=== PATIENT | female | born 1940 | race Caucasian/White ===

== ENCOUNTER 2017-07-31 08:14 | Day surgery (SDC) | payer MEDICARE ==
[~2017-07-31] VITALS: Ht 170.2 cm; Wt 54.4 kg
[2017-07-31] MEDS ORDERED: LIDOcaine 1% 30ml vial SQ STA (08:27)
[2017-07-31 08:54] VITALS: BP 165/61
[2017-07-31 09:00] VITALS: BP 175/54
[2017-07-31 09:15] VITALS: BP 171/56
[2017-07-31] MEDS ORDERED: PROG200C7 PO (09:27)
[2017-07-31] MEDS ORDERED: ROPI1TAB2 PO (09:27)
[2017-07-31] MEDS ORDERED: ASPI81TA52 PO (09:27)
[2017-07-31] MEDS ORDERED: ATOR20TA66 PO (09:27)
[2017-07-31] MEDS ORDERED: CYCL-1 PO (09:27)
[2017-07-31] MEDS ORDERED: MELO-102 PO (09:27)
[2017-07-31] MEDS ORDERED: ESTR1TAB19 PO (09:27)
[2017-07-31] MEDS ORDERED: RANI-553 PO (09:27)
[2017-07-31] MEDS ORDERED: THYR32.510 PO (09:27)
[2017-07-31] MEDS ORDERED: MULT-1085 PO (09:27)
[2017-07-31] MEDS ORDERED: ALPR-623 PO (09:27)
[2017-07-31] MEDS ORDERED: LISI-644 PO (09:27)
[2017-07-31 09:30] VITALS: BP 112/72
== END 2017-07-31 09:45 | disposition home or self-care (01) ==
LOC: SSTAY O 08:14
PROVIDERS: ATTEND Radiology Diagnostic Radiology
DX: J90 Pleural effusion, not elsewhere classified (principal); K21.9 Gastro-esophageal reflux disease without esophagitis; E78.5 Hyperlipidemia, unspecified; I10 Essential (primary) hypertension; Z90.710 Acquired absence of both cervix and uterus; Z98.890 Other specified postprocedural states; Z87.891 Personal history of nicotine dependence
CPT/HCPCS: 32555; 71045; J3490; 88108

== ENCOUNTER 2021-05-26 00:19 | Inpatient (IN) | payer BC, MEDICARE ==
[~2021-05-26] VITALS: Ht 172.7 cm; Wt 44.5 kg
[~2021-05-26 00:19] MED LIST: ALPR-623 PO; ASPI81TA52 PO; ATOR20TA66 PO; CYCL-1 PO; ESTR1TAB19 PO; LISI-644 PO; MELO-102 PO; MULT-1085 PO; PROG200C11 PO; RANI-647 PO; ROPI1TAB2 PO; THYR32.510 PO
[2021-05-26] MEDS ORDERED: normal saline 1000ml 1,000 ML IV ONE (00:45)
[2021-05-26 01:56] LABS: BASOPHILS % (AUTO) 0.5 % (0-1); EOSINOPHILS # (AUTO) 0.1 X10'3 (0-0.9); EOSINOPHILS % (AUTO) 1.6 % (0-6); HEMATOCRIT 26.9 % (35.0-45.0); HEMOGLOBIN 9.2 g/dl (12.0-16.0); LYMPHOCYTES # (AUTO) 1.2 X10'3 (1.1-4.8); LYMPHOCYTES % (AUTO) 18.4 % (21-51); MEAN CORPUSCULAR HEMOGLOBIN 33.4 PG (27.0-31.0); MEAN CORPUSCULAR HGB CONC 34.1 g/dL (33.0-36.5); MEAN CORPUSCULAR VOLUME 98.1 FL (78-98); MEAN PLATELET VOLUME 8.6 FL (7.4-10.4); MONOCYTES # (AUTO) 0.8 X10'3 (0-0.9); MONOCYTES % (AUTO) 12.7 % (2-12); NEUTROPHILS # (AUTO) 4.4 X10'3 (1.8-7.7); NEUTROPHILS % (AUTO) 66.8 % (42-75); PLATELET COUNT 221 X10'3 (140-440); RED BLOOD COUNT 2.74 X10'6 (4.20-5.60); RED CELL DISTRIBUTION WIDTH 12.4 % (11.5-14.5); WHITE BLOOD COUNT 6.6 X10'3 (4.5-11.0)
[2021-05-26 02:13] LABS: ALANINE AMINOTRANSFERASE 22 U/L (12-78); ALBUMIN 2.7 G/DL (3.4-5.0); ALBUMIN/GLOBULIN RATIO 0.9 (1.1-1.5); ALKALINE PHOSPHATASE 53 IU/L (46-116); ANION GAP 11 (8-16); ASPARTATE AMINO TRANSFERASE 16 U/L (10-37); BILIRUBIN,TOTAL 0.2 MG/DL (0.1-1.0); BLOOD UREA NITROGEN 13 MG/DL (7-18); CALCIUM 8.5 MG/DL (8.5-10.1); CHLORIDE 105 MMOL/L (99-107); CREATININE 1.45 MG/DL (0.40-0.90); GLUCOSE 141 MG/DL (70-104); SODIUM 137 MMOL/L (135-145); TOTAL CARBON DIOXIDE 20.6 MMOL/L (24-32); TOTAL PROTEIN 5.6 G/DL (6.4-8.2); eGFR 35 ML/MIN
[2021-05-26 02:16] LABS: POTASSIUM 2.9 MMOL/L (3.5-5.1)
[2021-05-26] MEDS ORDERED: potassium Cl 20 mEq SR tablet PO STA (02:35)
[2021-05-26] MEDS ORDERED: GABA-530 PO (02:56)
[2021-05-26] MEDS ORDERED: SYN0.088T PO (02:57)
[2021-05-26] MEDS ORDERED: LISI20TA28 PO (02:57)
[2021-05-26] MEDS ORDERED: MONT-40 PO (02:57)
[2021-05-26] MEDS ORDERED: ACET-1025 PO (03:00)
[2021-05-26] MEDS ORDERED: OMEP20CA15 PO (03:01)
[2021-05-26] MEDS ORDERED: [UNRECOGNIZED DRUG - CODE] (03:03)
[2021-05-26] MEDS ORDERED: benzocaine/menthol oral lozeng 1 EACH BOX MM PRN ×2 (03:45→03:50)
[2021-05-26] MEDS ORDERED: mag hydrox/Alum hydrox/simeth 30ml oral suspension PO PRN (04:40)
[2021-05-26] MEDS ORDERED: potassium Cl 20 mEq SR tablet PO PRN ×2 (04:40)
[2021-05-26] MEDS ORDERED: magnesium hydroxide 30ml (MOM) UD suspension PO PRN (04:40)
[2021-05-26] MEDS ORDERED: acetaminophen 325mg tablet PO PRN (04:40)
[2021-05-26] MEDS ORDERED: ondansetron/PF 4mg/2ml inj IV PRN (04:40)
[2021-05-26] MEDS ORDERED: potassium Cl 40MEQ/1/2NS 520ml 520 ML IV PRN ×2 (04:40)
[2021-05-26] MEDS ORDERED: CHOL500044 PO (05:38)
[2021-05-26] MEDS ORDERED: ASCO-10 PO (05:39)
[2021-05-26] MEDS: potassium Cl 20mEq in NS 1,000 ML IV SCH ×2 (05:51→22:47)
[2021-05-26] MEDS ORDERED: PERFLUTREN PROTEIN-A MICROSPHR (Optison) 0.22 MG/ML 3ML VIAL IV ONE (08:00)
[2021-05-26] MEDS: K and/or MAG REPLACEMENT MC SCH ×2 (09:07→20:00)
[2021-05-26] MEDS: aspirin 81mg, enteric-coated 1 TAB TABLET.DR PO SCH (09:11)
[2021-05-26] MEDS: pantoprazole 40mg Tablet.DR PO SCH (09:11)
[2021-05-26] MEDS: levoTHYROXINE 88mcg tablet PO SCH (09:12)
[2021-05-26] MEDS: docusate sod 100mg capsule PO SCH ×2 (09:12→22:03)
[2021-05-26] MEDS: heparin, porcine 5000 units/ml vial SQ SCH ×2 (09:12→22:04)
[2021-05-26 20:00] VITALS: BP 155/65
[2021-05-26 20:15] VITALS: BP 155/55
[2021-05-26] MEDS ORDERED: ROPINIRole 1mg tablet PO SCH (21:00)
[2021-05-26 22:00] VITALS: BP 142/61
[2021-05-26] MEDS ORDERED: Melatonin 3mg tablet PO PRN (22:25)
[2021-05-27 02:00] VITALS: BP 138/50
[2021-05-27 06:00] VITALS: BP 142/79
--- NOTE | 2021-05-27 06:00 | NUR ---
Patient in room PCU 3012. I have received report from LEDY RN and had the opportunity to ask questions and assume patient care.
[2021-05-27 08:00] VITALS: BP_SYST 141; BP_SYST 145; BP_SYST 158; BP_DIAS 49; BP_DIAS 58; BP_DIAS 67
[2021-05-27] MEDS: K and/or MAG REPLACEMENT MC SCH (08:00)
[2021-05-27] MEDS: pantoprazole 40mg Tablet.DR PO SCH (08:27)
[2021-05-27] MEDS: levoTHYROXINE 88mcg tablet PO SCH (08:28)
[2021-05-27] MEDS: aspirin 81mg, enteric-coated 1 TAB TABLET.DR PO SCH (08:28)
[2021-05-27] MEDS: docusate sod 100mg capsule PO SCH (08:28)
[2021-05-27] MEDS: heparin, porcine 5000 units/ml vial SQ SCH (08:29)
[2021-05-27 08:56] LABS: BASOPHILS % (AUTO) 0.5 % (0-1); EOSINOPHILS # (AUTO) 0.1 X10'3 (0-0.9); EOSINOPHILS % (AUTO) 1.7 % (0-6); HEMATOCRIT 30.5 % (35.0-45.0); HEMOGLOBIN 10.3 g/dl (12.0-16.0); LYMPHOCYTES # (AUTO) 2.1 X10'3 (1.1-4.8); LYMPHOCYTES % (AUTO) 33.3 % (21-51); MEAN CORPUSCULAR HEMOGLOBIN 33.5 PG (27.0-31.0); MEAN CORPUSCULAR HGB CONC 33.7 g/dL (33.0-36.5); MEAN CORPUSCULAR VOLUME 99.5 FL (78-98); MONOCYTES # (AUTO) 0.6 X10'3 (0-0.9); MONOCYTES % (AUTO) 9.8 % (2-12); NEUTROPHILS # (AUTO) 3.4 X10'3 (1.8-7.7); NEUTROPHILS % (AUTO) 54.7 % (42-75); PLATELET COUNT 244 X10'3 (140-440); RED BLOOD COUNT 3.07 X10'6 (4.20-5.60); RED CELL DISTRIBUTION WIDTH 12.7 % (11.5-14.5); WHITE BLOOD COUNT 6.3 X10'3 (4.5-11.0)
[2021-05-27 09:30] LABS: ALANINE AMINOTRANSFERASE 24 U/L (12-78); ALBUMIN 3.1 G/DL (3.4-5.0); ALKALINE PHOSPHATASE 60 IU/L (46-116); ANION GAP 11 (8-16); ASPARTATE AMINO TRANSFERASE 18 U/L (10-37); BILIRUBIN,TOTAL 0.3 MG/DL (0.1-1.0); BLOOD UREA NITROGEN 14 MG/DL (7-18); BUN/CREATININE RATIO 14.4 (6.6-38.0); CALCIUM 8.7 MG/DL (8.5-10.1); CHLORIDE 109 MMOL/L (99-107); CREATININE 0.97 MG/DL (0.40-0.90); GLUCOSE 75 MG/DL (70-104); POTASSIUM 3.4 MMOL/L (3.5-5.1); SODIUM 141 MMOL/L (135-145); TOTAL CARBON DIOXIDE 20.9 MMOL/L (24-32); TOTAL PROTEIN 6.2 G/DL (6.4-8.2); eGFR 55 ML/MIN
--- NOTE | 2021-05-27 09:55 | NUR ---
Noted pt with a low BMI of 14.9 however current documented wt of 44.5 kg isn't scaled. Most recent scaled wt hx in EMR is 54.4 kg taken 07/31/17 with a standing scale. Pending documentation of PO intake on heart healthy diet. Noted pt was pending outpatient esophageal dilation per H&P and pt has been unable to eat solids for the last week per ED report. TC to RN who reports pt was able to consume all of breakfast this morning without difficulties. Noted pt denied known wt loss or eating poorly with decreased appetite per malnutrition risk screen with RN. Pt with no documented decrease in muscle strength or edema and per ED report pt appears well developed well nourished. Pt currently lacks a minimum of two criteria for malnutrition. Will continue to follow. Addendum: 05/27/21 at [address] Amended: Links added.
--- NOTE | 2021-05-27 10:20 | NUR ---
Pt ambulated 300ft with no assistive devices on RA. No complaints of SOB or weakness.
[2021-05-27 11:00] VITALS: BP 146/53
--- NOTE | 2021-05-27 15:20 | NUR ---
Pt DC'd home with daughter. Pt alert and oriented and vitals WNL upon DC. Per Dr. Benson; Pt is stable for DC. DC paperwork printed out and gone over with pt. Allowed pt and daughter to ask questions concerning DC and then answered them. No new prescriptions to call in. Pt's belongings gathered and sent with Pt. Pt wheeled down to lobby via wheelchair. Pt left in private vehicle with daughter for home.
== END 2021-05-27 15:20 | disposition home or self-care (01) | DRG 312 ==
LOC: ER 00:19 → ED HOLD 04:41 → PCU 3S 20:51
PROVIDERS: ADMIT Internal Medicine; ATTEND Internal Medicine
DX: I95.1 Orthostatic hypotension (principal); E03.9 Hypothyroidism, unspecified; E78.00 Pure hypercholesterolemia, unspecified; E87.6 Hypokalemia; D53.9 Nutritional anemia, unspecified; R01.1 Cardiac murmur, unspecified; G25.81 Restless legs syndrome; I10 Essential (primary) hypertension; Z79.82 Long term (current) use of aspirin; Z79.899 Other long term (current) drug therapy; Z87.891 Personal history of nicotine dependence; Z90.710 Acquired absence of both cervix and uterus
CPT/HCPCS: 36415; 70450; 71045; 80053; 83880; 84484; 85025; 87081; 93005; 93306; 97116; 97161; 97530; 99285; G0378; J1644; J3480; J7030

== ENCOUNTER 2022-01-11 09:39 | Outpatient (CLI) | payer MEDICARE, OTHER ==
[~2022-01-11 09:39] MED LIST changes: +ACET-1025 PO; -ALPR-623 PO; +ASCO-10 PO; +CHOL500044 PO; -CYCL-1 PO; -ESTR1TAB19 PO; +GABA-530 PO; -LISI-644 PO; +LISI20TA28 PO; -MELO-102 PO; -MULT-1085 PO; +OMEP20CA15 PO; -PROG200C11 PO; -RANI-647 PO; +SYN0.088T PO; -THYR32.510 PO; +barium sulfate 450ml oral suspension ONE
== END 2022-01-11 23:59 | disposition home or self-care (01) ==
LOC: RAD 09:39
PROVIDERS: ATTEND Surgery
DX: K44.9 Diaphragmatic hernia without obstruction or gangrene (principal); K21.9 Gastro-esophageal reflux disease without esophagitis; R13.10 Dysphagia, unspecified
CPT/HCPCS: 74220

== ENCOUNTER 2024-01-26 22:19 | Inpatient (IN) | payer MEDICARE, OTHER ==
[~2024-01-26] VITALS: Ht 167.6 cm; Wt 57.7 kg
[~2024-01-26 22:19] MED LIST changes: -barium sulfate 450ml oral suspension ONE
[2024-01-26] MEDS ORDERED: iohexol 350MG/ML 100ml bottle IV ONE (22:54)
[2024-01-26 23:19] LABS: APTT 23 SECONDS (22-32); PROTHROMBIN TIME 10.3 SECONDS (9.0-12.0)
[2024-01-26 23:22] LABS: ALANINE AMINOTRANSFERASE 20 U/L (12-78); ALBUMIN 3.8 G/DL (3.4-5.0); ALBUMIN/GLOBULIN RATIO 1.2 (1.1-1.5); ALKALINE PHOSPHATASE 67 IU/L (46-116); ANION GAP 9 (8-16); ASPARTATE AMINO TRANSFERASE 16 U/L (10-37); BASOPHILS % (AUTO) 0.3 % (0-1); BILIRUBIN,TOTAL 0.3 MG/DL (0.1-1.0); BLOOD UREA NITROGEN 24 MG/DL (7-18); BUN/CREATININE RATIO 13.6 (10.0-20.0); CHLORIDE 101 MMOL/L (99-107); CREATININE 1.76 MG/DL (0.40-0.90); EOSINOPHILS # (AUTO) 0.1 X10'3 (0-0.9); EOSINOPHILS % (AUTO) 1.6 % (0-6); GLUCOSE 110 MG/DL (70-104); HEMATOCRIT 26.6 % (35.0-45.0); HEMOGLOBIN 8.9 g/dl (12.0-16.0); LYMPHOCYTES # (AUTO) 1.9 X10'3 (1.1-4.8); LYMPHOCYTES % (AUTO) 25.4 % (21-51); MEAN CORPUSCULAR HEMOGLOBIN 33.4 PG (27.0-31.0); MEAN CORPUSCULAR HGB CONC 33.6 g/dL (33.0-36.5); MEAN CORPUSCULAR VOLUME 99.3 FL (78-98); MEAN PLATELET VOLUME 8.9 FL (7.4-10.4); MONOCYTES # (AUTO) 0.9 X10'3 (0-0.9); MONOCYTES % (AUTO) 11.7 % (2-12); NEUTROPHILS # (AUTO) 4.7 X10'3 (1.8-7.7); PLATELET COUNT 183 X10'3 (140-440); POTASSIUM 4.9 MMOL/L (3.5-5.1); RED BLOOD COUNT 2.68 X10'6 (4.20-5.60); RED CELL DISTRIBUTION WIDTH 12.4 % (11.5-14.5); SODIUM 134 MMOL/L (135-145); TOTAL CARBON DIOXIDE 24.5 MMOL/L (24-32); WHITE BLOOD COUNT 7.7 X10'3 (4.5-11.0); eCRCL 23 ML/MIN; eGFR 28 ML/MIN
[2024-01-26] MEDS ORDERED: HYDR25TA4 PO (23:49)
[2024-01-27] VITALS (7 sets, daily range): BP systolic 108–162; BP diastolic 40–79; PULSE 58–66; RESP 14–18; TEMP 96.5–98.6; O2SAT 96–99
[2024-01-27] MEDS: normal saline 1000ml 1,000 ML IV ONE (00:02)
[2024-01-27 00:24] LABS: BILIRUBIN,URINE NEGATIVE (Neg); CLARITY,URINE CLEAR (Clear); COLOR,URINE STRAW (Yellow); GLUCOSE, URINE NEGATIVE (Neg); KETONES,URINE NEGATIVE (Neg); LEUKOCYTE ESTERASE ,URINE TRACE (Neg); NITRITES, URINE NEGATIVE (Neg); OCCULT BLOOD,URINE NEGATIVE (Neg); PROTEIN,URINE NEGATIVE (Neg); UROBILINOGEN,URINE 0.2 E.U/dL (0.2-1.0)
[2024-01-27 00:28] LABS: UA COLLECTION TYPE VOIDED
[2024-01-27 00:29] LABS: SQUAMOUS EPITHELIAL CELL,UR FEW /LPF (FEW)
[2024-01-27 00:30] LABS: BACTERIA,URINE FEW /HPF (Neg); RBC,URINE 0-2 /HPF (0-2)
[2024-01-27 00:31] LABS: TRANSITIONAL EPI CELLS,URINE FEW /HPF
[2024-01-27] MEDS ORDERED: magnesium sulf-water 2g/50mL 50 ML IV PRN (00:50)
[2024-01-27] MEDS ORDERED: potassium Cl 20 mEq SR tablet PO PRN ×2 (00:50)
[2024-01-27] MEDS ORDERED: mag hydrox/Alum hydrox/simeth 30ml oral suspension PO PRN (00:50)
[2024-01-27] MEDS ORDERED: magnesium Cl slow-release 64mg tablet PO PRN (00:50)
[2024-01-27] MEDS ORDERED: magnesium hydroxide 30ml (MOM) UD suspension PO PRN (00:50)
[2024-01-27] MEDS ORDERED: morphine 2 MG/ML inj. syringe IV PRN ×2 (00:50)
[2024-01-27] MEDS ORDERED: potassium Cl 40MEQ/1/2NS 520ml 520 ML IV PRN (00:50)
[2024-01-27] MEDS ORDERED: acetaminophen 325mg tablet PO PRN (00:50)
[2024-01-27] MEDS ORDERED: ondansetron/PF 4mg/2ml inj IV PRN (00:50)
[2024-01-27] MEDS ORDERED: magnesium sulf-water 4G/100mL 100 ML IV PRN (00:50)
[2024-01-27] MEDS: normal saline 1000ml 1,000 ML IV SCH (01:06)
[2024-01-27] MEDS: CefTRIAXone/D5W-Rocephin 1gm 50 ML IV ONE (01:14)
[2024-01-27 01:21] LABS: MAGNESIUM 2.1 MG/DL (1.5-2.4)
[2024-01-27 01:27] LABS: HEMOGLOBIN A1C 5.7 % (4.5-6.2)
[2024-01-27] MEDS ORDERED: non-formulary drug (Acetaminophen (Tylenol Extra Strength) 1 TAB) PO PRN (02:30)
[2024-01-27 03:14] LABS: THYROID STIMULATING HORMONE 1.13 ulU/ml (0.34-4.50)
[2024-01-27] MEDS: aspirin 81mg tab.chew PO ONE (05:55)
[2024-01-27] MEDS: levoTHYROXINE 88mcg tablet PO SCH (07:30)
[2024-01-27] MEDS: cholecalciferol (vitamin D3) 1,000 unit (25mcg) tablet PO SCH (07:30)
[2024-01-27] MEDS: MULTIVIT-MIN/FERROUS GLUCONATE 9 MG/15 ML LIQUID PO SCH (07:30)
[2024-01-27] MEDS: cyanocobalamin 500mcg tablet PO SCH (07:30)
[2024-01-27] MEDS: aspirin 81mg, enteric-coated 1 TAB TABLET.DR PO SCH (07:30)
[2024-01-27] MEDS: folic acid 1mg tablet PO SCH (07:31)
[2024-01-27] MEDS: pantoprazole 40mg Tablet.DR PO SCH (07:31)
[2024-01-27] MEDS: heparin, porcine 5000 units/ml vial SQ SCH (07:31)
[2024-01-27] MEDS: K and/or MAG REPLACEMENT MC SCH (07:41)
[2024-01-27] MEDS: atorvastatin 20mg tablet PO SCH (20:47)
[2024-01-27] MEDS: gabapentin 100mg capsule PO SCH (20:47)
[2024-01-27] MEDS: temazepam 15mg capsule PO PRN (20:48)
[2024-01-27] MEDS: ROPINIRole 1mg tablet PO SCH (20:48)
[2024-01-28] MEDS: CefTRIAXone/D5W-Rocephin 1gm 50 ML IV SCH (00:02)
[2024-01-28 04:52] LABS: BASOPHILS % (AUTO) 0.6 % (0-1); EOSINOPHILS # (AUTO) 0.2 X10'3 (0-0.9); EOSINOPHILS % (AUTO) 2.6 % (0-6); HEMATOCRIT 24.1 % (35.0-45.0); HEMOGLOBIN 8.1 g/dl (12.0-16.0); LYMPHOCYTES # (AUTO) 1.9 X10'3 (1.1-4.8); LYMPHOCYTES % (AUTO) 28.8 % (21-51); MEAN CORPUSCULAR HEMOGLOBIN 33.1 PG (27.0-31.0); MEAN CORPUSCULAR HGB CONC 33.6 g/dL (33.0-36.5); MEAN CORPUSCULAR VOLUME 98.4 FL (78-98); MEAN PLATELET VOLUME 8.7 FL (7.4-10.4); MONOCYTES # (AUTO) 0.9 X10'3 (0-0.9); MONOCYTES % (AUTO) 13.9 % (2-12); NEUTROPHILS # (AUTO) 3.5 X10'3 (1.8-7.7); NEUTROPHILS % (AUTO) 54.1 % (42-75); PLATELET COUNT 166 X10'3 (140-440); RED BLOOD COUNT 2.45 X10'6 (4.20-5.60); RED CELL DISTRIBUTION WIDTH 12.6 % (11.5-14.5); WHITE BLOOD COUNT 6.5 X10'3 (4.5-11.0)
[2024-01-28 05:08] LABS: ALANINE AMINOTRANSFERASE 19 U/L (12-78); ALBUMIN 3.1 G/DL (3.4-5.0); ALBUMIN/GLOBULIN RATIO 1.1 (1.1-1.5); ALKALINE PHOSPHATASE 59 IU/L (46-116); ANION GAP 4 (8-16); ASPARTATE AMINO TRANSFERASE 13 U/L (10-37); BILIRUBIN,TOTAL 0.3 MG/DL (0.1-1.0); BLOOD UREA NITROGEN 17 MG/DL (7-18); BUN/CREATININE RATIO 13.1 (10.0-20.0); CALCIUM 8.8 MG/DL (8.5-10.1); CHLORIDE 109 MMOL/L (99-107); CHOL/HDL RATIO 2.1 (0.00-4.99); CHOLESTEROL 135 MG/DL (0-200); GLUCOSE 85 MG/DL (70-104); HDL CHOLESTEROL 63 MG/DL (35-60); LDL CHOLESTEROL 53 MG/DL (50-100); POTASSIUM 4.6 MMOL/L (3.5-5.1); SODIUM 136 MMOL/L (135-145); TOTAL CARBON DIOXIDE 23.3 MMOL/L (24-32); TRIGLYCERIDES 82 MG/DL (20-135); eCRCL 31 ML/MIN; eGFR 39 ML/MIN
[2024-01-28 07:08] VITALS: BP 130/46; PULSE 60; RESP 14; TEMP 97.9; O2SAT 100
[2024-01-28 07:55] VITALS: RESP 14; O2SAT 100
[2024-01-28 11:00] VITALS: BP 132/47; PULSE 67; RESP 14; TEMP 98.3; O2SAT 99
[2024-01-28] MEDS: dextrose 5%-water 1,000 ML IV SCH (13:50)
[2024-01-28 18:00] VITALS: BP 165/56; PULSE 61; RESP 16; TEMP 98.5; O2SAT 95
[2024-01-28 20:00] VITALS: RESP 16; O2SAT 95
[2024-01-28 22:00] VITALS: BP 179/49; PULSE 69; RESP 16; TEMP 99.7; O2SAT 95
[2024-01-29 04:53] LABS: BASOPHILS % (AUTO) 0.5 % (0-1); EOSINOPHILS # (AUTO) 0.1 X10'3 (0-0.9); EOSINOPHILS % (AUTO) 2.2 % (0-6); HEMATOCRIT 23.6 % (35.0-45.0); HEMOGLOBIN 7.9 g/dl (12.0-16.0); LYMPHOCYTES # (AUTO) 1.9 X10'3 (1.1-4.8); LYMPHOCYTES % (AUTO) 29.7 % (21-51); MEAN CORPUSCULAR HEMOGLOBIN 33.2 PG (27.0-31.0); MEAN CORPUSCULAR HGB CONC 33.7 g/dL (33.0-36.5); MEAN CORPUSCULAR VOLUME 98.3 FL (78-98); MEAN PLATELET VOLUME 8.5 FL (7.4-10.4); MONOCYTES # (AUTO) 0.9 X10'3 (0-0.9); MONOCYTES % (AUTO) 13.5 % (2-12); NEUTROPHILS # (AUTO) 3.4 X10'3 (1.8-7.7); NEUTROPHILS % (AUTO) 54.1 % (42-75); PLATELET COUNT 161 X10'3 (140-440); RED CELL DISTRIBUTION WIDTH 12.5 % (11.5-14.5); WHITE BLOOD COUNT 6.4 X10'3 (4.5-11.0)
[2024-01-29 05:13] LABS: % IRON SATURATION 17 % (11-46); IRON 40 UG/DL (49-151); TOTAL IRON BINDING CAPACITY 229 UG/DL (259-388)
[2024-01-29 05:23] LABS: ALANINE AMINOTRANSFERASE 17 U/L (12-78); ALKALINE PHOSPHATASE 57 IU/L (46-116); ANION GAP 10 (8-16); ASPARTATE AMINO TRANSFERASE 17 U/L (10-37); BILIRUBIN,TOTAL 0.3 MG/DL (0.1-1.0); BLOOD UREA NITROGEN 15 MG/DL (7-18); BUN/CREATININE RATIO 12.4 (10.0-20.0); CHLORIDE 104 MMOL/L (99-107); CREATININE 1.21 MG/DL (0.40-0.90); FERRITIN 210 NG/ML (8-252); GLUCOSE 103 MG/DL (70-104); MAGNESIUM 1.8 MG/DL (1.5-2.4); POTASSIUM 4.2 MMOL/L (3.5-5.1); SODIUM 136 MMOL/L (135-145); TOTAL CARBON DIOXIDE 22.4 MMOL/L (24-32); eCRCL 33 ML/MIN; eGFR 43 ML/MIN
[2024-01-29 06:00] VITALS: BP 126/37; PULSE 69; RESP 16; TEMP 99.7; O2SAT 95
[2024-01-29 08:00] VITALS: RESP 12; O2SAT 98
[2024-01-29 10:00] VITALS: BP 134/51; PULSE 71; RESP 15; TEMP 98.1; O2SAT 100
[2024-01-29] MEDS ORDERED: ASPI-1071 PO (12:32)
== END 2024-01-29 17:05 | disposition home health service (06) | DRG 64 ==
LOC: ER 22:20 → ED HOLD 01-27 00:56 → ORTHO 4S 01-27 02:50
PROVIDERS: ADMIT Surgery; ATTEND Family Medicine
PROC: B3251ZZ Computerized Tomography (CT Scan) of Bilateral Common Carotid Arteries using Low Osmolar Contrast (ICD-10-PCS; principal; 2024-01-26)
PROC: B32G1ZZ Computerized Tomography (CT Scan) of Bilateral Vertebral Arteries using Low Osmolar Contrast (ICD-10-PCS; 2024-01-26)
PROC: B3201ZZ Computerized Tomography (CT Scan) of Thoracic Aorta using Low Osmolar Contrast (ICD-10-PCS; 2024-01-26)
PROC: B32R1ZZ Computerized Tomography (CT Scan) of Intracranial Arteries using Low Osmolar Contrast (ICD-10-PCS; 2024-01-26)
PROC: B3281ZZ Computerized Tomography (CT Scan) of Bilateral Internal Carotid Arteries using Low Osmolar Contrast (ICD-10-PCS; 2024-01-26)
DX: I63.9 Cerebral infarction, unspecified (principal); N17.0 Acute kidney failure with tubular necrosis; I65.22 Occlusion and stenosis of left carotid artery; M54.30 Sciatica, unspecified side; I10 Essential (primary) hypertension; E78.00 Pure hypercholesterolemia, unspecified; E11.9 Type 2 diabetes mellitus without complications; E86.0 Dehydration; D50.9 Iron deficiency anemia, unspecified; D63.8 Anemia in other chronic diseases classified elsewhere; Z87.891 Personal history of nicotine dependence; Z79.899 Other long term (current) drug therapy; Z79.82 Long term (current) use of aspirin
CPT/HCPCS: 36415; 70450; 70496; 70498; 71045; 80053; 80061; 81001; 82728; 82948; 83036; 83540; 83550; 83735; 84443; 85025; 85610; 85730; 87081; 87088; 92508; 92616; 93005; 93306; 93880; 96361; 96365; 97116; 97161; 97530; 99285; G0378; J0696; J1644; J7030; J7070; Q9967

== ENCOUNTER 2024-04-12 02:18 | Emergency (ER) | payer MEDICARE, OTHER ==
[~2024-04-12] VITALS: Ht 167.6 cm; Wt 58.1 kg
[~2024-04-12 02:18] MED LIST changes: -ASCO-10 PO; +ASPI-1071 PO; -ASPI81TA52 PO; -LISI20TA28 PO
[2024-04-12 02:43] LABS: BASOPHILS % (AUTO) 0.4 % (0-1); EOSINOPHILS # (AUTO) 0.2 X10'3 (0-0.9); EOSINOPHILS % (AUTO) 2.3 % (0-6); HEMATOCRIT 26.2 % (35.0-45.0); HEMOGLOBIN 8.6 g/dl (12.0-16.0); LYMPHOCYTES # (AUTO) 1.6 X10'3 (1.1-4.8); LYMPHOCYTES % (AUTO) 21.6 % (21-51); MEAN CORPUSCULAR HGB CONC 32.9 g/dL (33.0-36.5); MEAN CORPUSCULAR VOLUME 100.3 FL (78-98); MEAN PLATELET VOLUME 8.2 FL (7.4-10.4); MONOCYTES # (AUTO) 0.8 X10'3 (0-0.9); MONOCYTES % (AUTO) 11.4 % (2-12); NEUTROPHILS # (AUTO) 4.7 X10'3 (1.8-7.7); NEUTROPHILS % (AUTO) 64.3 % (42-75); PLATELET COUNT 170 X10'3 (140-440); RED BLOOD COUNT 2.61 X10'6 (4.20-5.60); RED CELL DISTRIBUTION WIDTH 12.9 % (11.5-14.5); WHITE BLOOD COUNT 7.4 X10'3 (4.5-11.0)
[2024-04-12 02:57] LABS: ALANINE AMINOTRANSFERASE 15 U/L (12-78); ALBUMIN 3.1 G/DL (3.4-5.0); ALBUMIN/GLOBULIN RATIO 1.1 (1.1-1.5); ALKALINE PHOSPHATASE 61 IU/L (46-116); ANION GAP 7 (8-16); ASPARTATE AMINO TRANSFERASE 15 U/L (10-37); BILIRUBIN,TOTAL 0.2 MG/DL (0.1-1.0); BLOOD UREA NITROGEN 22 MG/DL (7-18); BUN/CREATININE RATIO 17.3 (10.0-20.0); CALCIUM 8.4 MG/DL (8.5-10.1); CHLORIDE 108 MMOL/L (99-107); CREATININE 1.27 MG/DL (0.40-0.90); GLUCOSE 105 MG/DL (70-104); POTASSIUM 3.8 MMOL/L (3.5-5.1); SODIUM 139 MMOL/L (135-145); TOTAL CARBON DIOXIDE 23.8 MMOL/L (24-32); TOTAL PROTEIN 5.8 G/DL (6.4-8.2); eCRCL 32 ML/MIN; eGFR 40 ML/MIN
[2024-04-12 03:04] LABS: PRO BRAIN NATRIURETIC PEPTIDE 1780 PG/ML (0-450)
[2024-04-12 04:28] VITALS: BP 125/56; PULSE 59; RESP 20; TEMP 97.8; O2SAT 98
== END 2024-04-12 04:34 | disposition home or self-care (01) ==
LOC: ER 02:18
DX: S09.90XA Unspecified injury of head, initial encounter (principal); I10 Essential (primary) hypertension; E78.00 Pure hypercholesterolemia, unspecified; G89.11 Acute pain due to trauma; Z79.899 Other long term (current) drug therapy; Z79.82 Long term (current) use of aspirin; W18.30XA Fall on same level, unspecified, initial encounter; Y93.89 Activity, other specified; Y92.89 Other specified places as the place of occurrence of the external cause; Y99.8 Other external cause status
CPT/HCPCS: 36415; 70450; 71045; 72125; 80053; 83880; 84484; 85025; 93005; 99285